=== PATIENT | male | born 1960 | race Caucasian/White ===

== ENCOUNTER → 2016-11-28 | Day surgery (SDC) | payer OTHER ==
[~2016-11-28] MED LIST: LISINOPRIL10 MG PO; METFORMIN HCL500 M1 PO; SIMVASTATIN40 MG PO
--- NOTE | ~2016-11-28 | OR ---
Unit #: [id number] #: [id number] Patient: ALEX LUNDBERG [id number] [facility] [address] [facility]. [place], [place] [address] [id number] O MR#: [id number] NAME: ALEX LUNDBERG. ROOM: Date of Procedure: 11/28/2016 Admission Date: 11/28/2016 Surgeon: Portillo Vang M.D. : 1960 Attending Physician: Portillo Vang M.D. Primary Care Physician: Nazanin Caballero OPERATIVE REPORT PREOPERATIVE DIAGNOSIS Incarcerated umbilical hernia. POSTOPERATIVE DIAGNOSIS Incarcerated umbilical hernia. PROCEDURE PERFORMED Open repair umbilical hernia with 8 cm Ventralex mesh. ANESTHESIA General endotracheal anesthesia. ESTIMATED BLOOD LOSS Less than 20 mL. INDICATIONS FOR PROCEDURE A 56-year-old gentleman with a very large and longstanding umbilical hernia. DESCRIPTION OF PROCEDURE The patient was admitted to [facility], positively identified, and transported to the operating room, and after induction of general endotracheal anesthesia, he was prepped and draped in usual sterile fashion. A transverse incision below the umbilicus was made, dissected down and the hernia sac from the umbilical skin and then opened the hernia sac at the level of the fascia. The hernia sac was excised and the incarcerated omentum was so large compared to the fascial defect. Then, we clamped, divided, and ligated the omentum and excised the excess portion that had been incarcerated obviously for a longtime because it was very fibrotic and hard. Once I tied off the omentum where it had been clamped and divided, the omentum was reduced back in the peritoneal cavity. I palpated through the fascial defect and there were no other fascial defects or adhesions. The defect was approximately 4 cm. An 8 cm Ventralex patch was placed in the peritoneal cavity and pulled up taut against the anterior abdominal wall. I secured it circumferentially with 0 Ethibond interrupted sutures and closed the fascia. I then infiltrated 30 mL of 0.5% Marcaine with epinephrine into the fascia and soft tissue. An umbilicoplasty was performed. Then, the soft tissue was closed in layers with 2-0 Vicryl interrupted suture and the skin was closed with sterile skin julian. Dry sterile dressing was placed. Sponges and needle counts were correct x3. The patient tolerated the procedure well and was transported to recovery in stable condition. Unit #: [id number] #: [id number] Patient: ALEX LUNDBERG Dictated by... Jayne Johnson/mal TD: 11/28/2016 22:52 JOB #: [id number] OPERATIVE REPORT Page 1 of 1 X Portillo Vang MD X PROCEDURE OPERATIVE NOTE
--- NOTE | ~2016-11-28 | EKG ---
PATIENT: ALEX LUNDBERG UNIT #: [id number] Ventricular Rate: 63 BPM Atrial Rate: 63 BPM P-R Interval: 220 ms QRS Duration: 124 ms Q-T Interval: 400 ms QTC Calculation(Bezet): 409 ms P Jefferson: 11 degrees Calculated T Jefferson: 39 degrees Diagnosis Line: Sinus rhythm with 1st degree A-V block Diagnosis Line: Non-specific intra-ventricular conduction delay Diagnosis Line: Borderline ECG Diagnosis Line: No previous ECGs available Diagnosis Line: Confirmed by JOSELINE MORALES MD ([id number]) on 11/30/2016 Diagnosis Line: 4:25:16 PM INTERPRETING MD: ANDREW BRIAN
[2016-11-28 11:32] LABS: BASOPHIL# 0.1 X10e3 (0-0.3); BASOPHIL% 0.5 % (0-2.5); EOSINOPHIL# 0.3 X10e3 (0-0.7); EOSINOPHIL% 2.8 % (0.0-7.0); HEMATOCRIT 47.4 % (38.0-50.0); HEMOGLOBIN 16.1 gm/dL (13.0-16.0); LYMPHOCYTE# 2.5 X10e3 (1.0-3.5); LYMPHOCYTE% 22.6 % (17.0-45.0); MEAN CELL VOLUME 85.2 FL (83-96); MEAN CORPUSCULAR HEMOGLOBIN 28.9 PG (28-34); MEAN PLATELET VOLUME 7.9 FL (6.5-11.5); MONOCYTE# 0.6 X10e3 (0-1.0); MONOCYTE% 5.7 % (3.0-12.0); NEUTROPHIL# 7.5 X10e3 (1.5-7.1); NEUTROPHIL% 68.4 % (40-75); PLATELET COUNT 247 X10e3 (140-420); RED BLOOD COUNT 5.57 X10e (3.90-5.60); RED CELL DISTRIBUTION WIDTH 12.8 % (11.0-15.5); WHITE BLOOD COUNT 10.9 X10e3 (4.0-10.5)
[2016-11-28 11:35] LABS: DIFF IND NO
[2016-11-28 12:04] LABS: BUN/CREATININE RATIO 17.5; CALCIUM SERUM 9.7 mg/dL (8.4-10.2); CREATININE SERUM 0.8 mg/dL (0.6-1.4); GLOM FILT RATE Estimated 98.5 mL/min (>60); POTASSIUM 3.9 mmol/L (3.5-5.1)
== END | disposition home or self-care (01) ==
LOC: CSUR 10:39
PROVIDERS: Specialist
DX: K42.0 Umbilical hernia with obstruction, without gangrene (principal); I10 Essential (primary) hypertension; E78.2 Mixed hyperlipidemia; G47.30 Sleep apnea, unspecified; E78.1 Pure hyperglyceridemia; E11.9 Type 2 diabetes mellitus without complications; E66.9 Obesity, unspecified; Z68.38 Body mass index [BMI] 38.0-38.9, adult; Z87.442 Personal history of urinary calculi; Z80.0 Family history of malignant neoplasm of digestive organs; Z80.42 Family history of malignant neoplasm of prostate; Z79.84 Long term (current) use of oral hypoglycemic drugs; Z79.899 Other long term (current) drug therapy; Z98.890 Other specified postprocedural states
CPT/HCPCS: 80048; 82947; 85025; 88302; 93005; J0330; J0690; J1100; J2250; J2710; J3010